=== PATIENT | male | born 1990 | race African-American/Black ===

== ENCOUNTER 2024-01-02 14:32 | Emergency (ER) | payer OTHER, SELFPAY ==
--- NOTE | 2024-01-02 14:41 | ED.GENADULT ---
HPI - General Adult General Chief complaint: Dental/Oral Stated complaint: Left Side Face Swelling Time Seen by Provider: 01/02/24 14:44 Source: patient Mode of arrival: ambulatory History of Present Illness HPI narrative: 33 y/o male presented for c/o left facial pain and swelling, first noticed yesterday. Endorses poor dentition. Took Tylenol yesterday. States he has a dentist. Pt is noted to have elevated BP on arrival; denies chest pain, heart racing, dizziness, vision changes or headache. Related Data Home Medications Medication Instructions Recorded Confirmed albuterol sulfate 90 mcg/actuation inhalation 01/02/24 01/02/24 aerosol inhaler fluticasone propionate 220 inhalation 01/02/24 mcg/actuation HFA aerosol inhaler montelukast 10 mg tablet mg 01/02/24 Allergies Allergy/AdvReac Type Severity Reaction Status Date / Time No Known Allergies Allergy Unverified 09/11/18 11:31 Review of Systems Review of Systems: CONSTITUTIONAL: Denies body aches, fever, chills ENT: Denies rhinorrhea, congestion, sore throat, or otalgia. Reports dental pain, swelling CARDIOVASCULAR: Denies chest pain, palpitations RESPIRATORY: Denies cough or dyspnea. SKIN: Denies rash, itching, or wounds. MUSCULOSKELETAL: Denies myalgia. NEUROLOGIC: Denies headache, numbness, tingling, or weakness. PMFSH Comments At time of signature, I have reviewed and agree with nursing past medical, surgical, social and family history unless otherwise noted. Please see nursing chart for further information. There is no relevant family history pertinent to the presenting complaint Exam Narrative: GENERAL: Appears in pain; no acute distress. EYES: EOMI. No redness or drainage. Conjunctivae normal. ENT: Dental pain location of #12; swelling and abscess formation noted to the lip/gumline junction. No active drainage. Poor dentition throughout. Facial swelling and tenderness noted at the site. Mucous membranes pink and moist. TMs normal bilaterally. Throat normal. Uvula midline. NECK: Normal AROM. No lymphadenopathy. CHEST: No respiratory distress. Clear to auscultation. HEART: Regular rate and rhythm. No murmur appreciated. SKIN: Warm, dry, no rash. Normal skin turgor. NEURO: No focal deficits. Alert and oriented x3. Gait steady. HENMT: Face images: 1. area of facial swelling. Course Course Emergency Course: Patient is aware of diagnosis, understands and agrees to treatment plan. Anticipatory guidance given. Patient agrees to follow-up as directed and is aware of reasons to seek care at the emergency department. Portions of this record may have been created with voice recognition software Level of Care: Express Care Visit Vital Signs Vital signs: Vital Signs Temperature 99.0 F 01/02/24 14:45 Respiratory Rate 16 01/02/24 14:45 Pulse Oximetry 99 01/02/24 14:45 Temperature 99.0 F 01/02/24 15:01 Respiratory Rate 16 01/02/24 15:01 Blood Pressure 200/120 H 01/02/24 14:55 Pulse Oximetry 99 01/02/24 15:01 Medical Decision Making MDM Narrative Medical decision making narrative: Pt presented for left upper dental pain, facial swelling. Rx Augmentin, viscous lidocaine and ibuprofen. Discussed danger triangle. States he will f/u with his dentist. Pt was noted to have elevated bp readings 240/114, 200/120. Pt denies chest pain, palpitations, headache, vision changes. Advised to transfer to the ER for further evaluation and management of the readings. Discussed at length the risks associated with uncontrolled hypertension and hypertension urgency/emergency including but not limited to worsening of the condition, organ damage, permanent disability, stroke, and . at bedside, RN at bedside. states they will not be going to the ER at this time. The patient is clinically sober, AA&Ox3, free from distracting injury. The patient has demonstrated concrete thinking/reasoning, has irma
[2024-01-02 14:45] VITALS: RESP 16; TEMP 37.2; O2SAT 99
[2024-01-02 14:50] VITALS: BP 219/144
[2024-01-02 14:55] VITALS: BP 200/120
[2024-01-02 15:01] VITALS: RESP 16; TEMP 37.2; O2SAT 99
== END 2024-01-02 15:15 | disposition left against medical advice (07) ==
PROVIDERS: Emergency Provider Nurse Practitioner Family
DX: I16.0 Hypertensive urgency (principal); K04.7 Periapical abscess without sinus; Z79.899 Other long term (current) drug therapy
CPT/HCPCS: 99213; G0463

== ENCOUNTER 2025-05-19 15:39 | Emergency (ER) | payer OTHER, SELFPAY ==
[2025-05-19 15:54] VITALS: BP 189/143; PULSE 98; RESP 20; TEMP 36.4; O2SAT 100
--- NOTE | 2025-05-19 16:11 | ED.LOWEXIN ---
HPI - Extremity Injury (Lower) General Chief Complaint: Extremity Injury, Lower Stated Complaint: Right Leg Pain Time Seen by Provider: 05/19/25 15:55 Source: patient and RN notes reviewed Mode of arrival: ambulatory Limitations: no limitations History of Present Illness HPI Narrative: 34-year-old male presents Express Care complaining of right lower leg injury. Patient reports yesterday he accidentally struck his right lower leg the speaker at [employer]. Patient denies any falls or speak or falling on his leg. Since then the patient has noticed increased swelling and pain to his right lower extremity. Patient says swelling is very painful it is hard to walk on his right leg. Patient denies any chest pain or shortness of breath. Patient has as a history of asthma. Denies any other significant past medical history but states he has not seen a doctor in a very long time. Patient denies any numbness or tingling, or any other injuries. Related Data Home Medications ?Medication ?Instructions ?Recorded ?Confirmed ?Last Taken ?Type albuterol sulfate 90 mcg/actuation inhalation 01/02/24 01/02/24 Unknown History aerosol inhaler Allergies Allergy/AdvReac Type Severity Reaction Status Date / Time No Known Allergies Allergy Verified 05/19/25 15:52 Review of Systems Review of Systems: CONSTITUTIONAL: Denies fever, chills, or sweats. EYES: Denies visual changes, redness, or discharge. ENT: Denies rhinorrhea, congestion, sore throat, or otalgia. CARDIOVASCULAR: Denies chest pain, palpitations, or edema. RESPIRATORY: Denies cough or dyspnea. GASTROINTESTINAL: Denies abdominal pain, nausea, vomiting, or diarrhea. GENITOURINARY: Denies dysuria or hematuria. SKIN: Denies rash or itching. MUSCULOSKELETAL: Denies back pain, joint pain, or myalgia. Positive for right lower leg swelling and pain. NEUROLOGIC: Denies headache, numbness, or weakness. PSYCHIATRIC: Denies anxiety or depression. All other systems reviewed are negative, except as documented in HPI. PMFSH Comments At the time of my signature, I reviewed and agree with the nursing past medical, surgical, social, and family history. There is no relevant family history pertinent to the patient complaint. Exam Narrative: GENERAL: This is a well-nourished, well-developed adult, in no apparent distress. They are non ill-appearing, nontoxic appearing. Patient is morbidly obese. HEAD: normocephalic, atraumatic. EYES: Sclera clear/white. Conjunctiva normal. Vision is grossly intact. Extraocular movements intact EARS: External ears normal, Hearing grossly intact. NOSE: External nose normal THROAT: Mucous membranes moist, NECK: Neck supple CARDIOVASCULAR: Regular rate and rhythm RESPIRATORY: Respiratory rate normal, respiratory effort nonlabored, no respiratory distress SKIN: Right lower leg: Right lower extremity edematous with bruising throughout and approximately double the size of the left lower extremity. Tenderness to palpation throughout the deep venous system. No palpable cord. Right pedal pulse 2 +and palpable. Tenderness to palpation throughout the right lower extremity. Capillary refill less than 2 seconds. Neurovascular status intact distal injury. No obvious deformity or redness. NEURO: awake, alert, and oriented to person, place and time. There were no obvious focal neurologic abnormalities. EXTREMITIES: No joint tenderness, effusion, or edema noted. Course Course Emergency Course: Portions of this record may have been created with voice recognition software Level of Care: Express Care Visit Vital Signs Vital signs: Vital Signs Temperature 97.6 F 05/19/25 15:54 Pulse Rate 98 05/19/25 15:54 Respiratory Rate 20 05/19/25 15:54 Blood Pressure 189/143 H 05/19/25 15:54 Pulse Oximetry 100 05/19/25 15:54 Oxygen Delivery Room Air 05/19/25 15:54 Temperature 97.6 F 05/19/25 15:54 Pulse Rate 98 05/19/25 15:54 Respiratory Rate 20 05/19/25 15:54 Blood Pressure 189/143 H 05/19/25 15:54 Pulse Oximetry 100 05/19/25 15:54 Oxygen Delivery Room Air 05/19/25 15:54 Reviewed Transfer Transfered to: [facility] Transportation: Other (Private vehicle) Transfer rationale: Rule out blood clot, patient requires higher level care Accepting physician: Dr. Mullins [facility] [place] - Extremity Injury (Lower) MDM Narrative Medical decision making narrative: Low suspicion for fracture. Swelling and pain does correlate with patient's mechanism injury that he states. Wells score of 2. Cannot rule out DVT. Given patient's symptoms, it is recommend the patient seek a higher level care and proceed immediately to the emergency department. Patient is agreeable to go to [facility] ER. Called over to [facility] and spoke with benny morton RN who is aware this patient and Dr. Mullins who accepted this patient for transfer. Patient advised to remain NPO and proceed immediately to the ER. Patient family member will take him via private vehicle. Differential Diagnosis Differential diagnosis: Likely other (Right lower leg injury, tibia/fibula fracture, deep vein thrombosis) Critical Care Time Critical Care Time Critical Care Time: No Discharge Plan Discharge Clinical Impression: Pain and swelling of right lower extremity Patient Disposition: Acute Care Hospital Condition: Stable Patient Language: Greenlandic Prescriptions: No Action albuterol sulfate 90 mcg/actuation HFA aerosol inhaler INHALATION Follow-up/Referrals: Raghav,Julio Cesar Dixon MD [Primary Care Provider] - Time of Disposition: 15:59
== END 2025-05-19 16:06 | disposition short-term general hospital (02) ==
PROVIDERS: PCP Internal Medicine
DX: M79.661 Pain in right lower leg (principal); R22.41 Localized swelling, mass and lump, right lower limb; J45.909 Unspecified asthma, uncomplicated
CPT/HCPCS: 99212; G0463